=== PATIENT | male | born 1970 | race Caucasian/White ===

== ENCOUNTER 2018-12-05 10:32 | Inpatient (IN) | payer MEDICAID, OTHER ==
[~2018-12-05] VITALS: Ht 160 cm; Wt 52.6 kg
[2018-12-05 11:31] LABS: HEMATOCRIT. 32.9 % (42.0-52.0); HEMOGLOBIN. 10.9 g/dL (14.0-18.0); MEAN CORPUSCULAR HEMOGLOBIN 28.3 pg (28.0-32.0); MEAN CORPUSCULAR VOLUME 85.7 fL (80.0-94.0); MEAN PLATELET VOLUME 6.8 fl (7.4-10.4); PLATELET 497 x1000/uL (130-400); RED BLOOD CELL COUNT 3.84 mill/uL (4.7-6.1); RED CELL DISTRIBUTION WIDTH 18.6 % (11.6-14.6)
[2018-12-05 11:33] LABS: CLARITY URINE CLEAR (CLEAR); COLOR URINE YELLOW (YELLOW); KETONES URINE NEGATIVE (NEGATIVE); LEUKOCYTE ESTERASE URINE NEGATIVE (NEGATIVE); NITRITE URINE NEGATIVE (NEGATIVE); OCCULT BLOOD URINE NEGATIVE (NEGATIVE); PROTEIN URINE TRACE (NEGATIVE); SPECIFIC GRAVITY URINE 1.027 (1.005-1.030); UROBILINOGEN URINE 0.2 E.U./dL (0.2-1.0)
[2018-12-05 11:37] LABS: CHLORIDE 102 mEq/L (98-107); PROTHROMBIN TIME 10.2 sec (9.1-11.1)
[2018-12-05 12:06] LABS: PLATELET ESTIMATE INCREASED
[2018-12-05] MEDS ORDERED: CEFTRIAXONE 1 G PREMIX 50 ML IV ONE (12:15)
[2018-12-05] MEDS ORDERED: AZITHROMYCIN 500 MG in DEXT 5% WATER 250 ML IV SCH ×2 (12:15→13:30)
[2018-12-05] MEDS ORDERED: DIPHENHYDRAMINE 50MG/ML VIAL IV PRN (13:30)
[2018-12-05] MEDS ORDERED: LEVOFLOXACIN 500MG PREMIX 100 ML IV SCH ×2 (13:30→23:00)
[2018-12-05] MEDS ORDERED: ENOXAPARIN 40MG/0.4ML SYR SUBCUT SCH (13:30)
[2018-12-05] MEDS ORDERED: ACETAMINOPHEN 650MG/20.3ML UDC GT PRN (13:30)
[2018-12-05] MEDS ORDERED: ACETAMINOPHEN 650MG SUPP PR PRN (13:30)
[2018-12-05] MEDS ORDERED: VANCOMYCIN 1 G PREMIX 200 ML IV SCH (13:30)
[2018-12-05] MEDS: IPRATROPIUM/ALBUTEROL 0.5-3(2.5)MG/3ML NEB INH SCH (13:30)
[2018-12-05] MEDS ORDERED: GUAIFENESIN 200MG/10ML SUGAR FREE UDC PO PRN (13:30)
[2018-12-05] MEDS ORDERED: IPRATROPIUM/ALBUTEROL 0.5-3(2.5)MG/3ML NEB INH PRN (13:30)
[2018-12-05] MEDS ORDERED: ONDANSETRON HCL 4MG/2ML INJ IV PRN (13:30)
[2018-12-05] MEDS ORDERED: ACETAMINOPHEN 325MG TABLET PO PRN (13:30)
[2018-12-05] MEDS ORDERED: MAGNESIUM/ALUMINUM HYDROXIDE/SIMETHICONE 30ML UDC PO PRN (13:30)
[2018-12-05] MEDS ORDERED: CLONIDINE 0.1MG TABLET PO PRN (13:30)
[2018-12-05] MEDS ORDERED: DOCUSATE SODIUM 100MG CAPSULE PO PRN (13:30)
[2018-12-05] MEDS: HYDROCODONE/ACETAMINOPHEN 5/325MG TABLET PO PRN ×2 (14:31→21:57)
[2018-12-05] MEDS: SODIUM CHLORIDE 0.9% INJ 3ML FLUSH IVF SCH ×2 (14:36→21:57)
[2018-12-05 17:22] LABS: CREATINE KINASE 36 IU/L (39-308)
[2018-12-05 17:23] LABS: CREATINE KINASE MB FRACTION < 1.0 ng/mL (0.5-3.6)
[2018-12-05 17:44] LABS: *COCAINE SCREEN URINE NEGATIVE (NEGATIVE); METHADONE URINE SCREEN NEGATIVE (NEGATIVE)
[2018-12-05 17:45] LABS: *AMPHETAMINES SCREEN URINE NEGATIVE (NEGATIVE); *BARBITURATES SCREEN URINE NEGATIVE (NEGATIVE); CANNABINOID URINE SCREEN NEGATIVE (NEGATIVE); OPIATES URINE SCREEN NEGATIVE (NEGATIVE); PHENCYCLIDINE URINE SCREEN NEGATIVE (NEGATIVE)
[2018-12-05 17:46] LABS: *BENZODIAZEPINES SCREEN URINE NEGATIVE (NEGATIVE)
[2018-12-05 20:00] VITALS: BP 125/73
[2018-12-05] MEDS ORDERED: NA PHOS,M-B/NA PHOS,DI-BA ENEMA 118ML PR PRN (21:00)
[2018-12-05] MEDS ORDERED: PNEUMOCOCCAL 23-VAL P-SAC VAC 0.5 ML IM ONE (23:15)
[2018-12-06] VITALS: BP 117/78
[2018-12-06 00:39] LABS: CREATINE KINASE 37 IU/L (39-308)
[2018-12-06 00:40] LABS: CREATINE KINASE MB FRACTION < 1.0 ng/mL (0.5-3.6)
[2018-12-06] MEDS: VANCOMYCIN 1 G PREMIX 200 ML IV SCH ×3 (01:00→15:45)
[2018-12-06 04:00] VITALS: BP 120/74
[2018-12-06] MEDS: SODIUM CHLORIDE 0.9% INJ 3ML FLUSH IVF SCH ×2 (05:46→15:42)
[2018-12-06 06:10] LABS: ABSOLUTE EOSINOPHILS 0.1 x10E3/uL (0.0-0.4); ABSOLUTE LYMPHOCYTES 1.7 x10E3/uL (0.7-3.1); BASOPHILS 0 % (Not Estab.); HEMATOCRIT 31.1 % (37.5-51.0); HEMOGLOBIN 9.9 g/dL (13.0-17.7); IMMATURE GRANULOCYTES 2 % (Not Estab.); IMMATURE GRANULOCYTES ABSOLUTE 0.2 x10E3/uL (0.0-0.1); LYMPHOCYTES 16 % (Not Estab.); MEAN CORPUSCULAR HEMOGLOBIN 27.3 pg (26.6-33.0); MEAN CORPUSCULAR HGB CONC. 31.8 g/dL (31.5-35.7); MEAN CORPUSCULAR VOLUME 86 fL (79-97); MONOCYTES 9 % (Not Estab.); NEUTROPHILS 72 % (Not Estab.); PLATELETS 486 x10E3/uL (150-379); RBC 3.63 x10E6/uL (4.14-5.80); RED CELL DISTRIBUTION WIDTH 18.4 % (12.3-15.4)
[2018-12-06 06:20] LABS: BASOPHILS % 0.4 % (0.0-2.0); EOSINOPHILS % 0.4 % (0.0-5.0); HEMATOCRIT. 28.9 % (42.0-52.0); HEMOGLOBIN. 9.6 g/dL (14.0-18.0); LYMPHOCYTES % 21.6 % (20.0-50.0); MEAN CORPUSCULAR HEMOGLOBIN 28.1 pg (28.0-32.0); MEAN CORPUSCULAR VOLUME 84.7 fL (80.0-94.0); MEAN PLATELET VOLUME 6.7 fl (7.4-10.4); MONOCYTES % 9.6 % (2.0-8.0); PLATELET 437 x1000/uL (130-400); RED BLOOD CELL COUNT 3.42 mill/uL (4.7-6.1); RED CELL DISTRIBUTION WIDTH 18.7 % (11.6-14.6)
[2018-12-06 06:21] LABS: CHLORIDE 96 mEq/L (98-107)
[2018-12-06 06:37] LABS: LDL CHOLESTEROL 52 mg/dL (5-100)
[2018-12-06 06:39] LABS: HDL CHOLESTEROL 37 mg/dL (40-59)
[2018-12-06 08:00] VITALS: BP 105/61
[2018-12-06] MEDS: HYDROCODONE/ACETAMINOPHEN 5/325MG TABLET PO PRN ×3 (09:34→20:57)
[2018-12-06 12:00] VITALS: BP 109/69
[2018-12-06 12:00] LABS: % CD 3 POS. LYMPHOCYTES 73.6 % (57.5-86.2); % CD 4 POS. LYMPHOCYTES 4.6 % (30.8-58.5); % CD 8 POS. LYMPH 69.8 % (12.0-35.5); ABSOLUTE CD 3 1251 /uL (622-2402); ABSOLUTE CD 4 HELPER 78 /uL (359-1519); ABSOLUTE CD 8 SUPPRESSOR 1187 /uL (109-897); CD4/CD8 RATIO 0.07 (0.92-3.72)
[2018-12-06] MEDS: AZITHROMYCIN 500 MG in DEXT 5% WATER 250 ML IV SCH (12:19)
[2018-12-06] MEDS: SULFAMETHOXAZOLE/TRIMETHOPRIM 800/160MG TABLET PO SCH (15:45)
[2018-12-06 16:00] VITALS: BP 103/64
[2018-12-06] MEDS ORDERED: CEFEPIME 2,000 MG in DEXT 5% WATER 100 ML IV SCH (16:00)
[2018-12-06 20:00] VITALS: BP 109/71
[2018-12-06] MEDS: CEFEPIME 2,000 MG in DEXT 5% WATER 100 ML IV SCH (20:56)
[2018-12-06] MEDS: GUAIFENESIN 600MG ER TABLET PO SCH (20:56)
[2018-12-06] MEDS: ENOXAPARIN 40MG/0.4ML SYR SUBCUT SCH (21:01)
[2018-12-07] VITALS: BP 106/67
[2018-12-07] MEDS: HYDROCODONE/ACETAMINOPHEN 5/325MG TABLET PO PRN ×3 (01:45→20:24)
[2018-12-07] MEDS: IPRATROPIUM/ALBUTEROL 0.5-3(2.5)MG/3ML NEB INH SCH ×3 (01:54→09:01)
[2018-12-07 04:00] VITALS: BP 104/67
[2018-12-07] MEDS: SODIUM CHLORIDE 0.9% INJ 3ML FLUSH IVF SCH ×4 (06:00→23:34)
[2018-12-07 08:00] VITALS: BP 121/77
[2018-12-07] MEDS: SULFAMETHOXAZOLE/TRIMETHOPRIM 800/160MG TABLET PO SCH (08:14)
[2018-12-07] MEDS: GUAIFENESIN 600MG ER TABLET PO SCH ×2 (08:14→20:13)
[2018-12-07] MEDS: CEFEPIME 2,000 MG in DEXT 5% WATER 100 ML IV SCH ×2 (08:14→20:13)
[2018-12-07 10:21] LABS: HEMATOCRIT. 28.7 % (42.0-52.0); HEMOGLOBIN. 9.3 g/dL (14.0-18.0); MEAN CORPUSCULAR HEMOGLOBIN 27.8 pg (28.0-32.0); MEAN CORPUSCULAR VOLUME 85.8 fL (80.0-94.0); MEAN PLATELET VOLUME 6.9 fl (7.4-10.4); PLATELET 397 x1000/uL (130-400); RED BLOOD CELL COUNT 3.35 mill/uL (4.7-6.1); RED CELL DISTRIBUTION WIDTH 18.3 % (11.6-14.6)
[2018-12-07] MEDS ORDERED: SODIUM CHLORIDE 10% FOR INH 15ML VIAL NEB INH NR (11:00)
[2018-12-07 11:04] LABS: CHLORIDE 96 mEq/L (98-107)
[2018-12-07] MEDS: VANCOMYCIN 1 G PREMIX 200 ML IV SCH ×4 (11:33→23:34)
[2018-12-07] MEDS ORDERED: LEVO750T21 MT (11:54)
[2018-12-07] MEDS ORDERED: SULF1TAB48 MT (11:54)
[2018-12-07 12:00] VITALS: BP 115/76
[2018-12-07 13:26] LABS: PLATELET ESTIMATE NORMAL
[2018-12-07] MEDS: IPRATROPIUM/ALBUTEROL 0.5-3(2.5)MG/3ML NEB HHN SCH ×3 (13:59→20:46)
[2018-12-07] MEDS: ACETYLCYSTEINE 100MG/ML 10% VIAL 4ML INH SCH (14:00)
[2018-12-07] MEDS: AZITHROMYCIN 500 MG in DEXT 5% WATER 250 ML IV SCH (14:07)
[2018-12-07 16:00] VITALS: BP 98/59
[2018-12-07 20:00] VITALS: BP 103/66
[2018-12-07] MEDS: ENOXAPARIN 40MG/0.4ML SYR SUBCUT SCH (20:13)
[2018-12-08] VITALS: BP 103/66
[2018-12-08] MEDS: ACETYLCYSTEINE 100MG/ML 10% VIAL 4ML INH SCH ×2 (00:35→08:39)
[2018-12-08] MEDS: IPRATROPIUM/ALBUTEROL 0.5-3(2.5)MG/3ML NEB HHN SCH ×4 (00:39→11:40)
[2018-12-08 04:15] VITALS: BP 93/52
[2018-12-08] MEDS: SODIUM CHLORIDE 0.9% INJ 3ML FLUSH IVF SCH (05:51)
[2018-12-08] MEDS: HYDROCODONE/ACETAMINOPHEN 5/325MG TABLET PO PRN ×2 (05:51→09:44)
[2018-12-08 08:00] VITALS: BP 104/63
[2018-12-08] MEDS: GUAIFENESIN 600MG ER TABLET PO SCH (08:04)
[2018-12-08] MEDS: SULFAMETHOXAZOLE/TRIMETHOPRIM 800/160MG TABLET PO SCH (08:04)
[2018-12-08] MEDS: CEFEPIME 2,000 MG in DEXT 5% WATER 100 ML IV SCH (08:05)
[2018-12-08] MEDS: VANCOMYCIN 1 G PREMIX 200 ML IV SCH (08:05)
[2018-12-08 12:00] VITALS: BP 106/63
[2018-12-08] MEDS: AZITHROMYCIN 500 MG in DEXT 5% WATER 250 ML IV SCH (12:59)
[2018-12-08 13:31] VITALS: BP 106/63
[2018-12-09 15:11] LABS: *HIV-1 RNA BY PCR 80 copies/mL (.)
== END 2018-12-08 14:30 | disposition home or self-care (01) | DRG 890 ==
LOC: ER 10:40 → ENRESERV 12:37 → CANRESERV 12:37 → CANBEDREQ 12:38 → 8WST 12:47 → ENRESERV 18:24
PROVIDERS: ADMIT Family Medicine; ATTEND Family Medicine
DX: B20 Human immunodeficiency virus [HIV] disease (principal); J96.00 Acute respiratory failure, unspecified whether with hypoxia or hypercapnia; A41.9 Sepsis, unspecified organism; E43 Unspecified severe protein-calorie malnutrition; J15.6 Pneumonia due to other Gram-negative bacteria; D63.8 Anemia in other chronic diseases classified elsewhere; E87.1 Hypo-osmolality and hyponatremia; Z59.0 Homelessness; Z68.32 Body mass index [BMI] 32.0-32.9, adult
CPT/HCPCS: 36415; 71045; 71250; 80061; 80202; 80305; 82550; 82553; 83605; 83615; 83880; 84484; 86359; 86360; 87070; 87536; 87804; 93005; 94640; 96365; 96367; 96368; 97116; 97162; 99285; J0456; J0692; J0696; J1650; J1956; J3370; J7040; J7060; J7131; J7608; J7620